=== PATIENT | male | born 1965 | race Caucasian/White ===

== ENCOUNTER 2022-01-29 13:29 | Emergency (ER) | payer BC, SELFPAY ==
[2022-01-29 13:39] VITALS: BP 127/76; PULSE 72; RESP 16; TEMP 36.4; O2SAT 99
--- NOTE | 2022-01-29 13:55 | ED.URI ---
HPI - URI/Sore Throat General Chief Complaint: Upper Respiratory Infection Stated Complaint: uri Time Seen by Provider: 01/29/22 13:55 Source: patient and RN notes reviewed Mode of arrival: ambulatory Limitations: no limitations History of Present Illness HPI Narrative: 56-year-old male presented for complaint of sinus pressure, congestion, cough, and headache since yesterday. Endorses his was sick with an upper respiratory infection last week. He is not vaccinated for COVID. He denies shortness of breath, wheezing, nausea, vomiting, fevers or chills. He is taking [id number] Mucinex for symptoms. MD elicited complaint: cough Related Data Home Medications Medication Instructions Recorded Confirmed aspirin 81 mg chewable tablet 81 mg PO DAILY 01/29/22 01/29/22 dapagliflozin 10 mg tablet 1 tablet PO DAILY 01/29/22 01/29/22 (Farxiga) dulaglutide 0.75 mg/0.5 mL 0.75 mg subcut WEEKLY 01/29/22 01/29/22 subcutaneous pen injector (Trulicity) rosuvastatin 20 mg tablet 1 tablet PO DAILY 01/29/22 01/29/22 sitagliptin 50 mg-metformin 1,000 1 tablet PO BID 01/29/22 01/29/22 mg tablet (Janumet) ticagrelor 90 mg tablet (Brilinta) 90 mg PO Q12H 01/29/22 01/29/22 Allergies Allergy/AdvReac Type Severity Reaction Status Date / Time hydrocodone Allergy Other Verified 01/29/22 14:07 Review of Systems Review of Systems: CONSTITUTIONAL: Denies malaise, chills, sweats, fever EYES: Denies visual changes, redness, or discharge ENT: Reports rhinorrhea, congestion, sinus pain CARDIOVASCULAR: Denies chest pain, palpitations, edema RESPIRATORY: Reports cough, post nasal drainage. Denies dyspnea NEUROLOGIC: reports headache Exam Narrative: GENERAL: Ill-appearing, nontoxic EYES: PERRLA, conjunctivae clear ENT: Mucous membranes moist. TMs pearly holley with normal light reflex bilaterally; no tragal tenderness. Oropharynx erythematous without lesions or exudate CHEST: Clear to auscultation, breath sounds equal. No wheezing, rhonchi, rales, or stridor HEART: Regular rate and rhythm. No murmur heard. SKIN: Warm, dry, no rash. NEURO: Alert and oriented x3. PSYCH: Normal mood and affect Course Course Emergency Course: Patient is aware of diagnosis, understands and agrees to treatment plan. Anticipatory guidance given. Patient agrees to follow-up as directed and is aware of reasons to seek care at the emergency department. Portions of this record may have been created with voice recognition software Level of Care: Express Care Visit Vital Signs Vital signs: Vital Signs Temperature 97.6 F 01/29/22 13:39 Pulse Rate 72 01/29/22 13:39 Respiratory Rate 16 01/29/22 13:39 Blood Pressure 127/76 01/29/22 13:39 Pulse Oximetry 99 01/29/22 13:39 Oxygen Delivery Room Air 01/29/22 13:39 Temperature 97.6 F 01/29/22 13:39 Pulse Rate 72 01/29/22 13:39 Respiratory Rate 16 01/29/22 13:39 Blood Pressure 127/76 01/29/22 13:39 Pulse Oximetry 99 01/29/22 13:39 Oxygen Delivery Room Air 01/29/22 13:39 reviewed MDM - URI/Sore Throat MDM Narrative Medical decision making narrative: covid negative. Advised supportive measures and signs/symptoms to go to the ER. Pt is appropriate for outpt treatment and f/u. Differential Diagnosis Differential diagnosis: Likely upper respiratory infection, sinusitis and viral infection Discharge Plan Discharge Clinical Impression: Upper respiratory infection Qualifiers: URI type: unspecified URI Qualified Code(s): J06.9 - Acute upper respiratory infection, unspecified Patient Disposition: Home, Self-Care Condition: Stable Instructions: Antibiotic Form, Upper Respiratory Infection (ED) Additional Instructions: Your Rapid COVID test was negative today. If you are symptomatic with reason to believe you have COVID-19, there is a high possibility your rapid test may not have detected the virus. You should follow appropriate guidelines regarding qu
== END 2022-01-29 14:30 | disposition home or self-care (01) ==
PROVIDERS: Emergency Provider Nurse Practitioner Family
DX: J06.9 Acute upper respiratory infection, unspecified (principal); Z20.822 Contact with and (suspected) exposure to COVID-19
CPT/HCPCS: 87426; 99213; C9803; G0463

== ENCOUNTER 2022-09-21 10:02 | Emergency (ER) | payer OTHER, SELFPAY ==
[2022-09-21 10:15] VITALS: BP 132/96; PULSE 89; RESP 16; TEMP 36.4; O2SAT 99
--- NOTE | 2022-09-21 11:33 | ED.URI ---
HPI - URI/Sore Throat General Chief Complaint: Upper Respiratory Infection Stated Complaint: Cough/Sinus Time Seen by Provider: 09/21/22 11:34 Source: patient, RN notes reviewed and old records reviewed Mode of arrival: ambulatory Limitations: no limitations History of Present Illness HPI Narrative: 57-year-old male presents to the [facility] with complaints cough and sinus congestion since Friday, 3 days Took Zyrtec 1 time. Has tried [id number] cold and flu medication Onset (ago): day(s) (3) Related Data Home Medications Medication Instructions Recorded Confirmed aspirin 81 mg chewable tablet 81 mg PO DAILY 01/29/22 09/21/22 dapagliflozin 10 mg tablet 1 tablet PO DAILY 01/29/22 09/21/22 (Farxiga) dulaglutide 0.75 mg/0.5 mL 0.75 mg subcut WEEKLY 01/29/22 09/21/22 subcutaneous pen injector (Trulicity) rosuvastatin 20 mg tablet 1 tablet PO DAILY 01/29/22 09/21/22 sitagliptin phosphate 50 1 tablet PO BID 01/29/22 09/21/22 mg-metformin 1,000 mg tablet (Janumet) ticagrelor 90 mg tablet (Brilinta) 90 mg PO Q12H 01/29/22 09/21/22 Allergies Allergy/AdvReac Type Severity Reaction Status Date / Time hydrocodone Allergy Other Verified 09/21/22 10:37 Review of Systems Review of Systems: All systems reviewed & are unremarkable except as noted in HPI and below Constitutional: Constitutional: Reports no additional constitutional complaints Eyes: Eyes: Reports no additional eye complaints ENT: Reports as per HPI and Reports nasal congestion Cardiovascular: Cardiovascular: Reports no additional cardiovascular complaints, Denies chest pain and Denies dyspnea Respiratory: Respiratory: Reports no additional respiratory complaints, Denies chest congestion, Denies cough and Denies dyspnea Gastrointestinal: Gastrointestinal: Reports no additional gastrointestinal complaints, Denies abdominal pain, Denies nausea and Denies vomiting Musculoskeletal: Musculoskeletal: Reports no additional musculoskeletal complaints Integumentary/Breasts: Skin/Breast: Reports system reviewed and no additional complaints, except as docu Neurologic: Reports system reviewed and no additional complaints, except as documented Psychiatric: Psychiatric: Reports no additional psychiatric complaints Allergic/Immunologic: Allergic/Immunologic: Reports no additional allergic/immunologic complaints [facility] Past Medical History Medical History (Updated 09/21/22 @ 19:36 by Malaika Horner APRN) High cholesterol Comments At the time of my signature, I reviewed and agree with the nursing past medical, surgical, social, and family history. There is no relevant family history pertinent to the patient complaint. Exam Const: General: cooperative, healthy appearing, comfortable, no acute distress, well developed, alert and well nourished Nutritional Appearance: well nourished Orientation/consciousness: patient oriented x3 Limitations: no limitations HENMT: Head: normal to inspection Ears: hearing grossly normal bilaterally and external ears normal Face/Nose/Sinus: Normal external nose present, Normal nares present, Normal nasal mucous membranes and turbinates present, Nasal discharge present clear bilateral and normal facial exam Face and sinus: normal facial exam Mouth: Yes Normal oral and palatal mucosa present, Yes lip normal and Yes moist mucous membranes Throat: posterior oropharynx normal, uvula midline and postnasal drainage Eyes: General: appearance normal, both eyes and all related structures Alignment and Position: alignment normal Periorbital: periorbital findings normal Conjunctivae: conjunctivae normal Pupils: Equal, round and reactive pupils present EOM: EOMs intact bilaterally Neck: Neck: normal visual inspection, full ROM, no lymphadenopathy and no meningeal signs Chest: Chest palpation & inspection: normal inspection of the chest Resp: Effort & Inspection: normal respiratory effort and able to speak in complete
== END 2022-09-21 11:48 | disposition home or self-care (01) ==
PROVIDERS: Emergency Provider Nurse Practitioner
DX: J06.9 Acute upper respiratory infection, unspecified (principal); Z20.822 Contact with and (suspected) exposure to COVID-19; E78.00 Pure hypercholesterolemia, unspecified; Z79.82 Long term (current) use of aspirin
CPT/HCPCS: 87426; 87804; 99213; C9803; G0463

== ENCOUNTER 2023-07-05 08:28 | Emergency (ER) | payer OTHER, SELFPAY ==
[2023-07-05 08:58] VITALS: BP 130/92; PULSE 76; RESP 16; TEMP 36; O2SAT 99
--- NOTE | 2023-07-05 09:11 | ED.URI ---
HPI - URI/Sore Throat General Chief Complaint: Upper Respiratory Infection Stated Complaint: cough Time Seen by Provider: 07/05/23 09:11 Source: patient Mode of arrival: ambulatory Limitations: no limitations History of Present Illness HPI Narrative: 58 yo M presents with c/o nasal congestion and cough for 4 days. Afebrile. No CP and SOB. Also reports L upper dental pain for 2 days with swelling. Does not have a dentist. Reports hxo of pulling his own teeth due to being loose from extubation after surgery . Denies drainage. All systems reviewed and negative except as noted above. Related Data Home Medications Medication Instructions Recorded Confirmed aspirin 81 mg chewable tablet 81 mg PO DAILY 01/29/22 07/05/23 dapagliflozin propanediol 10 mg 1 tablet PO DAILY 01/29/22 07/05/23 tablet (Farxiga) dulaglutide 0.75 mg/0.5 mL 0.75 mg subcut WEEKLY 01/29/22 07/05/23 subcutaneous pen injector (Trulicity) rosuvastatin 20 mg tablet 1 tablet PO DAILY 01/29/22 07/05/23 sitagliptin phosphate 50 1 tablet PO BID 01/29/22 07/05/23 mg-metformin 1,000 mg tablet (Janumet) ticagrelor 90 mg tablet (Brilinta) 90 mg PO Q12H 01/29/22 07/05/23 empagliflozin 25 mg tablet 25 mg PO DAILY 07/05/23 07/05/23 (Jardiance) glimepiride 4 mg tablet 4 mg PO DAILY 07/05/23 07/05/23 metoprolol tartrate 25 mg tablet 25 mg PO DAILY 07/05/23 07/05/23 Allergies Allergy/AdvReac Type Severity Reaction Status Date / Time hydrocodone Allergy Other Verified 07/05/23 08:48 Review of Systems Review of Systems: CONSTITUTIONAL: Denies fever, chills, or sweats. EYES: Denies visual changes, redness, or discharge. ENT: reports rhinorrhea, congestion. Denies sore throat, or otalgia. reports left upper dental pain with swelling. CARDIOVASCULAR: Denies chest pain, palpitations, or edema. RESPIRATORY: Reports cough. Denies dyspnea. GASTROINTESTINAL: Denies abdominal pain, nausea, vomiting, or diarrhea. GENITOURINARY: Denies dysuria or hematuria. SKIN: Denies rash or itching. MUSCULOSKELETAL: Denies back pain, joint pain, or myalgia. NEUROLOGIC: Denies headache, numbness, or weakness. PSYCHIATRIC: Denies anxiety or depression. All other systems reviewed are negative, except as documented in HPI. [facility] Past Medical History Medical History (Updated 07/06/23 @ 00:00 by Background Daemon) High cholesterol Comments At time of signature, agree with nursing past medical, surgical, social and family history. There is no relevant family history pertinent to the presenting complaint. Exam Narrative: GENERAL: This is a well-nourished, well-developed patient, in no apparent distress. HEAD: normocephalic, atraumatic. EYES: PERRL. Sclera clear/white. Vision is grossly intact. EARS: External ears normal, auditory canals clear and without drainage, TMs normal without perforation. Hearing grossly intact. NOSE: External nose normal with Clear nasal drainage, no erythema or swelling to bilateral nares. MOUTH: swelling and tenderness to L upper gums. multiple teeth missing or decayed. no drainage. No fluctuance concernign for abscess. mild L facial swelling of cheek. THROAT: Mucous membranes moist, posterior pharynx clear. NECK: Neck supple, non-tender without lymphadenopathy, masses or thyromegaly. CARDIOVASCULAR: Regular rate and rhythm without murmurs, gallops, or rubs. RESPIRATORY: Clear to auscultation. Breath sounds equal bilaterally. No wheezes, rales, or rhonchi. SKIN: warm, Dry, intact with no suspicious lesions or rash, good texture and turgor. NEURO: awake, alert, and oriented to person, place and time. There were no obvious focal neurologic abnormalities. EXTREMITIES: No joint tenderness, effusion, or edema noted. Course Course Level of Care: Express Care Visit Vital Signs Vital signs: Vital Signs Temperature 36.0 C L 07/05/23 08:58 Pulse Rate 76 07/05/23 08:58 Respiratory Rate 16 07/05/23 08:58 Blood Pressure
== END 2023-07-05 09:33 | disposition home or self-care (01) ==
PROVIDERS: Emergency Provider Nurse Practitioner Family
DX: J06.9 Acute upper respiratory infection, unspecified (principal); K04.7 Periapical abscess without sinus; E78.00 Pure hypercholesterolemia, unspecified; Z79.82 Long term (current) use of aspirin
CPT/HCPCS: 99213; G0463